=== PATIENT | male | born 1980 | race Caucasian/White ===

== ENCOUNTER → 2020-03-27 | Outpatient (CLI) | payer MEDICAID ==
[2020-03-27 14:47] LABS: Basophils # (A) 0.1 k/uL (0-0.2); Basophils % (A) 1 %; Eosinophils # (A) 0.4 k/uL (0-0.7); Eosinophils % (A) 3 %; HCT 43.9 % (39.0-53.0); HGB 14.6 gm/dL (13.0-17.5); Lymphocytes # (A) 3.8 k/uL (1.0-4.8); Lymphocytes % (A) 26 %; MCH 28.7 pg (25.0-35.0); MCHC 33.3 g/dL (31.0-37.0); MCV 86.2 fL (80.0-100.0); Mean Platelet Volume 7.6; Monocytes # (A) 0.7 k/uL (0-1.0); Monocytes % (A) 5 %; Neutrophils # (A) 9.3 k/uL (1.3-7.7); Neutrophils % (A) 63 %; Platelet Count 340 k/uL (150-450); WBC 14.6 k/uL (3.8-10.6)
[2020-03-28 00:26] LABS: African American GFR (CKD) 110.9 (60.0-200.0); Albumin 4.9 g/dL (3.80-4.90); Albumin/Globulin Ratio 1.88 (1.60-3.17); Anion Gap 11.8 mmol/L (4.00-12.00); Carbon Dioxide 22.2 mmol/L (21.6-31.8); Chol/HDL Ratio 4.14; Globulin 2.6 g/dL (1.6-3.3); LDL Cholesterol,Calculated 129.6 mg/dL (0.0-131.0); Non-African American GFR(CKD) 95.7 (60.0-200.0); Potassium 4.1 mmol/L (3.5-5.5); Total Bilirubin 0.4 mg/dL (0.2-1.2); Total Protein 7.5 g/dL (6.2-8.2); VLDL Calculation 24.4 mg/dL (5.00-40.00)
== END | disposition home or self-care (01) ==
LOC: LABWHC1 13:58
PROVIDERS: ATTEND Physician Assistant Medical
DX: Z00.00 Encounter for general adult medical examination without abnormal findings (principal); Z13.220 Encounter for screening for lipoid disorders; Z13.228 Encounter for screening for other metabolic disorders; Z13.29 Encounter for screening for other suspected endocrine disorder
CPT/HCPCS: 36415; 80053; 80061; 84443; 85025

== ENCOUNTER → 2020-04-22 | Outpatient (CLI) | payer MEDICAID ==
--- NOTE | 2020-04-22 15:01 | XR ---
EXAMINATION TYPE: XR knee limited RT DATE OF EXAM: 04/22/2020 CLINICAL HISTORY: Pain. TECHNIQUE: Frontal and lateral views of the right knee are obtained. COMPARISON: None. FINDINGS: There is no acute fracture/dislocation evident in right knee. Mild tricompartment joint sp reynaldo loss without significant spurring. Increased densities patellar bursa could reflect small to mode rate size joint effusion. IMPRESSION: As above.
--- NOTE | 2020-04-22 15:02 | XR ---
EXAMINATION TYPE: XR foot limited LT DATE OF EXAM: 04/22/2020 CLINICAL HISTORY: Left foot pain. Palpable cyst second digit medially. Patient. TECHNIQUE: Frontal and lateral images of the left foot are obtained. COMPARISON: None FINDINGS: There is no acute fracture/dislocation evident in the left foot. No suspicious bony destru ction. Pes planus deformity. The joint spaces in the left foot appear within normal limits. The ove rlying soft tissue appears unremarkable. IMPRESSION: As above.
== END | disposition home or self-care (01) ==
LOC: RADXRMAIN 14:09
PROVIDERS: ATTEND Physician Assistant Medical
DX: M25.561 Pain in right knee (principal); M79.672 Pain in left foot

== ENCOUNTER → 2021-04-07 | Outpatient (CLI) | payer MEDICAID ==
[2021-04-07 20:28] LABS: Basophils # (A) 0.17 X 10*3/uL (0.00-0.10); Basophils % (A) 1.2 %; Eosinophils # (A) 0.84 X 10*3/uL (0.04-0.35); Eosinophils % (A) 5.7 %; HCT 46.8 % (39.6-50.0); HGB 15.6 g/dL (13.0-17.0); Lymphocytes # (A) 4.25 X 10*3/uL (0.90-5.00); Lymphocytes % (A) 28.9 %; MCH 28.9 pg (27.0-32.0); MCHC 33.3 g/dL (32.0-37.0); MCV 86.8 fL (80.0-97.0); Mean Platelet Volume 10.2 fL (9.5-12.2); Monocytes # (A) 1.08 X 10*3/uL (0.20-1.00); Monocytes % (A) 7.3 %; Neutrophils # (A) 8.25 X 10*3/uL (1.80-7.70); Neutrophils % (A) 56.2 %; Platelet Count 329 X 10*3/uL (140-440); RBC 5.39 X 10*6/uL (4.40-5.60); RDW 13.4 % (11.5-14.5)
[2021-04-08 09:00] LABS: African American GFR (CKD) 100.4 (60.0-200.0); Albumin 4.5 g/dL (3.8-4.9); Albumin/Globulin Ratio 2.17 (1.60-3.17); Anion Gap 18.3 mmol/L (4.00-12.00); BUN/Creat Ratio 14.35 Ratio (12.00-20.00); Blood Urea Nitrogen 15.5 mg/dL (9.0-27.0); Calcium 9.3 mg/dL (8.7-10.3); Carbon Dioxide 18.6 mmol/L (21.6-31.8); Chol/HDL Ratio 5.47 Ratio; Globulin 2.1 g/dL (1.6-3.3); HDL Cholesterol 40.6 mg/dL (40.00-60.00); LDL Cholesterol,Calculated 136.6 mg/dL (0.0-131.0); Non-African American GFR(CKD) 86.6 (60.0-200.0); Total Bilirubin 0.2 mg/dL (0.30-1.20); Total Protein 6.6 g/dL (6.2-8.2); VLDL Calculation 44.8 mg/dL (5.00-40.00)
== END | disposition home or self-care (01) ==
LOC: LABWHC1 13:59
PROVIDERS: ATTEND Physician Assistant Medical
DX: Z01.89 Encounter for other specified special examinations (principal)
CPT/HCPCS: 36415; 80053; 80061; 84443; 85025

== ENCOUNTER → 2022-06-17 | Outpatient (CLI) | payer MEDICAID ==
[2022-06-17 15:04] LABS: Basophils # (A) 0.12 X 10*3/uL (0.00-0.10); Basophils % (A) 1.1 %; Eosinophils % (A) 4.4 %; HCT 45.8 % (39.6-50.0); HGB 15.6 g/dL (13.0-17.0); Immature Grans, Automated 0.5 %; Lymphocytes # (A) 3.53 X 10*3/uL (0.90-5.00); Lymphocytes % (A) 31.3 %; MCH 29.6 pg (27.0-32.0); MCHC 34.1 g/dL (32.0-37.0); MCV 86.9 fL (80.0-97.0); Mean Platelet Volume 10.3 fL (9.5-12.2); Monocytes # (A) 0.99 X 10*3/uL (0.20-1.00); Monocytes % (A) 8.8 %; NRBC Per 100 WBC 0 /100 WBCS (0.0-0.0); Neutrophils # (A) 6.07 X 10*3/uL (1.80-7.70); Neutrophils % (A) 53.9 %; Platelet Count 352 X 10*3/uL (140-440); RBC 5.27 X 10*6/uL (4.40-5.60); RDW 13.5 % (11.5-14.5); WBC 11.27 X 10*3/uL (4.50-10.00)
[2022-06-17 15:38] LABS: ALT 27 U/L (10-49); AST 22 U/L (14-35); African American GFR (CKD) 118.5 (60.0-200.0); Albumin 4.6 g/dL (3.8-4.9); Albumin/Globulin Ratio 2.09 (1.60-3.17); Alkaline Phosphatase 78 U/L (41-126); BUN/Creat Ratio 14.21 Ratio (12.00-20.00); Blood Urea Nitrogen 13.3 mg/dL (9.0-27.0); Calcium 9.7 mg/dL (8.7-10.3); Carbon Dioxide 24.2 mmol/L (20.0-27.5); Chloride 104 mmol/L (96-109); Chol/HDL Ratio 5.39 Ratio; Globulin 2.2 g/dL (1.6-3.3); Glucose 102 mg/dL (70-110); LDL Cholesterol,Calculated 142.7 mg/dL (0.0-131.0); Non-African American GFR(CKD) 102.3 (60.0-200.0); Potassium 4.5 mmol/L (3.5-5.5); Sodium 139 mmol/L (135-145); Total Protein 6.8 g/dL (6.2-8.2)
== END | disposition home or self-care (01) ==
LOC: LABWHC1 08:07
PROVIDERS: ATTEND Nurse Practitioner Family
DX: Z00.01 Encounter for general adult medical examination with abnormal findings (principal); Z13.228 Encounter for screening for other metabolic disorders; U07.1 COVID-19
CPT/HCPCS: 36415; 80053; 80061; 84443; 85025; 86769

== ENCOUNTER 2022-12-02 13:15 | Observation (INO) | payer MEDICAID ==
--- NOTE | 2022-12-02 14:44 | ED ---
Abdominal Pain HPI - General Chief Complaint: Abdominal Pain Stated Complaint: Lower Abd Pain Time Seen by Provider: 12/02/22 14:28 Source: patient Mode of arrival: ambulatory Limitations: no limitations - History of Present Illness Initial Comments: 42-year-old male with no reported past medical history who presents to the emergency department reporting right lower quadrant abdominal pain. States that he came home from vacation on Tuesday and felt slight pain in his right lower quadrant. The pain has progressively gotten worse. States it is worse with movement and palpation. Better with rest. He does have an inguinal hernia on the right however this is easily reproducible and in a separate location than where his new pain has developed. He denies any nausea or vomiting. No fevers. No diarrhea, constipation, black or bloody stools. No testicular pain or swelling. No concern for sexually transmitted infections. No urinary complaint s to include dysuria, hematuria or difficulty voiding. He has not had any abdominal surgeries. No other alleviating, precipitating or modifying factors - Related Data Home Medications Medication Instructions Recorded Confirmed No Known Home Medications 12/02/22 12/02/22 Allergies Allergy/AdvReac Type Severity Reaction Status Date / Time No Known Allergies Allergy Verified 12/02/22 14:45 Review of Systems ROS Statement: Those systems with pertinent positive or pertinent negative responses have been documented in the HPI. ROS Other: All systems not noted in ROS Statement are negative. Past Medical History Past Medical History: No Reported History History of Any Multi-Drug Resistant Organisms: None Reported Past Surgical History: No Surgical Hx Reported Past Psychological History: No Psychological Hx Reported Smoking Status: Current every day smoker Past Alcohol Use History: Occasional Past Drug Use History: None Reported General Exam Limitations: no limitations General appearance: alert, in no apparent distress Head exam: Present: atraumatic, normocephalic, normal inspection Eye exam: Present: normal appearance, PERRL, EOMI. Absent: scleral icterus, conjunctival injection, periorbital swelling ENT exam: Present: normal exam, mucous membranes moist Neck exam: Present: normal inspection. Absent: tenderness, meningismus, lymphadenopathy Respiratory exam: Present: normal lung sounds bilaterally. Absent: respiratory distress, wheezes, rales, rhonchi, stridor Cardiovascular Exam: Present: regular rate, normal rhythm, normal heart sounds. Absent: systolic murmur, diastolic murmur, rubs, gallop, clicks GI/Abdominal exam: Present: soft, tenderness (Right lower quadrant), normal bowel sounds. Absent: distended, guarding, rebound, rigid Extremities exam: Present: normal inspection, full ROM, normal capillary refill. Absent: tenderness, pedal edema, joint swelling, calf tenderness Back exam: Present: normal inspection Neurological exam: Present: alert, oriented X3, CN II-XII intact Psychiatric exam: Present: normal affect, normal mood Skin exam: Present: warm, dry, intact, normal color. Absent: rash Course Vital Signs 12/02/22 12/02/22 12/02/22 14:17 17:47 19:25 Temperature 98.3 F 97.8 F Pulse Rate 82 73 75 Respiratory 16 18 17 Rate Blood Pressure 132/75 145/92 124/66 O2 Sat by Pulse 97 97 96 Oximetry 12/02/22 21:23 Temperature Pulse Rate 74 Respiratory 15 Rate Blood Pressure 120/53 O2 Sat by Pulse Oximetry Medical Decision Making - Medical Decision Making Was pt. sent in by a medical professional or institution (, PA, [employer], urgent care, hospital, or skilled nursing...) When possible be specific @ -No Did you speak to anyone other than the patient for history (EMS, parent, family, police, friend...)? What history was obtained from this source @ -No Did you review nursing and triage notes (agree or disagree)? Why? @ -I reviewed and agree with nursing and triage notes Were old charts reviewed (outside hosp., previous admission, EMS record, old EKG, old radiological studies, urgent care reports/EKG's, skilled nursing records)? Report findings @ -No old charts were reviewed Differential Diagnosis (chest pain, altered mental status, abdominal pain women, abdominal pain men, vaginal bleeding, weakness, fever, dyspnea, syncope, headach e, dizziness, GI bleed, back pain, seizure, CVA, palpatations, mental health, musculoskeletal)? @ -Differential Abdominal Pain Men: Appendicitis, cholecystitis, diverticulosis, ischemic bowel, pancreatitis, hepatitis, UTI, gastroenteritis, AAA, incarcerated hernia, bowel obstruction, constipation, inflammatory bowel, hepatitis, peptic ulcer disease, splenic infarction, perforated viscus, testicular torsion, this is not meant to be an all-inclusive list EKG interpreted by me (3pts min.). @ -Not done X-rays interpreted by me (1pt min.). @ -None done CT interpreted by me (1pt min.). @ -yes and demonstrates omental infarct U/S interpreted by me (1pt. min.). @ -None done What testing was considered but not performed or refused? (CT, X-rays, U/S, labs)? Why? @ -None What meds were considered but not given or refused? Why? @ -None Did you discuss the management of the patient with other professionals (professionals i.e. DrDayana, PA, [employer], lab, RT, psych nurse, bilingual social worker, recycling collections driver, teacher, bank operations officer, telehealth case manager)? Give summary @ -I spoke with Dr. Castro in regards to the patient's symptoms Was smoking cessation discussed for >3mins.? @ -No Was critical care preformed (if so, how long)? @ -No Were there social determinants of health that impacted care today? How? (Homelessness, low income, unemployed, alcoholism, drug addiction, transportation, low edu. Level, literacy, decrease access to med. care, fci, rehab)? @ -No Was there de-escalation of care discussed even if they declined (Discuss DNR or withdrawal of care, Hospice)? DNR status @ -No What co-morbidities impacted this encounter? (DM, HTN, Smoking, COPD, CAD, Cance r, CVA, ARF, Chemo, Hep., AIDS, mental health diagnosis, sleep apnea, morbid obesity)? @ -None Was patient admitted / discharged? Hospital course, mention meds given and route, prescriptions, significant lab abnormalities, going to OR and other pertinent info. @ -Upon arrival patient was placed into room 25. A thorough history and physical exam was performed. Patient does have significant tenderness the right lower quadrant. IV is established laboratory studies were conducted. Patient does have a leukocytosis. He reports that he has been told that he had elevated white blood cell counts in the past however has never been fully evaluated for this. Unsure of high his counts typically run. CT is performed which demonstrates omental infarct. I spoke with Dr. Castro. Patient will be covered with antibiotics and admitted overnight for observation. Repeat labs ordered for the morning. Patient was agreeable to this plan. Awaiting a bed on the floor in stable condition Undiagnosed new problem with uncertain prognosis? @ -Yes Drug Therapy requiring intensive monitoring for toxicity (Heparin, Nitro, Insulin, Cardizem)? @ -No Were any procedures done? @ -No Diagnosis/symptom? @ -Acute right lower quadrant pain, acute omental infarct, acute leukocytosis Acute, or Chronic, or Acute on Chronic? @ -Acute Uncomplicated (without systemic symptoms) or Complicated (systemic symptoms)? @ -Complicated Side effects of treatment? @ -No Exacerbation, Progression, or Severe Exacerbation? @ -No Poses a threat to life or bodily function? How? (Chest pain, USA, VT, pneumonia, PE, COPD, DKA, ARF, appy, cholecystitis, CVA, Diverticulitis, Homicidal, Suicidal, threat to staff... and all critical care pts) @ -No - Lab Data Result diagrams: 12/02/22 15:02 12/02/22 15:02 Lab Results 12/02/22 12/02/22 12/02/22 Range/Units 15:02 15:02 15:02 WBC 19.1 H (3.8-10.6) k/uL RBC 5.58 (4.30-5.90) m/uL Hgb 16.6 (13.0-17.5) gm/dL Hct 48.5 (39.0-53.0) % MCV 87.0 (80.0-100.0) fL MCH 29.8 (25.0-35.0) pg MCHC 34.3 (31.0-37.0) g/dL RDW 13.7 (11.5-15.5) % Plt Count 284 (150-450) k/uL MPV 7.8 Neutrophils % 72 % Lymphocytes % 19 % Monocytes % 5 % Eosinophils % 2 % Basophils % 0 % Neutrophils # 13.8 H (1.3-7.7) k/uL Lymphocytes # 3.7 (1.0-4.8) k/uL Monocytes # 1.0 (0-1.0) k/uL Eosinophils # 0.3 (0-0.7) k/uL Basophils # 0.1 (0-0.2) k/uL Sodium 138 (137-145) mmol/L Potassium 4.0 (3.5-5.1) mmol/L Chloride 100 (98-107) mmol/L Carbon Dioxide 26 (22-30) mmol/L Anion Gap 12 mmol/L BUN 18 (9-20) mg/dL Creatinine 0.81 (0.66-1.25) mg/dL Est GFR (CKD-EPI)AfAm >90 (>60 ml/min/1.73 sqM) Est GFR (CKD-EPI)NonAf >90 (>60 ml/min/1.73 sqM) Glucose 95 (74-99) mg/dL Plasma Lactic Acid Nikita (0.7-2.0) mmol/L Calcium 9.8 (8.4-10.2) mg/dL Total Bilirubin 0.7 (0.2-1.3) mg/dL AST 36 (17-59) U/L ALT 37 (4-49) U/L Alkaline Phosphatase 86 (38-126) U/L Total Protein 8.1 (6.3-8.2) g/dL Albumin 4.8 (3.5-5.0) g/dL Lipase 31 (23-300) U/L Urine Color Yellow Urine Appearance Clear (Clear) Urine pH 6.0 (5.0-8.0) Ur Specific [place] 1.015 (1.001-1.035) Urine Protein Negative (Negative) Urine Glucose (UA) Negative (Negative) Urine Ketones Negative (Negative) Urine Blood Negative (Negative) Urine Nitrite Negative (Negative) Urine Bilirubin Negative (Negative) Urine Urobilinogen <2.0 (<2.0) mg/dL Ur Leukocyte Esterase Negative (Negative) 12/02/22 Range/Units 15:02 WBC (3.8-10.6) k/uL RBC (4.30-5.90) m/uL Hgb (13.0-17.5) gm/dL Hct (39.0-53.0) % MCV (80.0-100.0) fL MCH (25.0-35.0) pg MCHC (31.0-37.0) g/dL RDW (11.5-15.5) % Plt Count (150-450) k/uL MPV Neutrophils % % Lymphocytes % % Monocytes % % Eosinophils % % Basophils % % Neutrophils # (1.3-7.7) k/uL Lymphocytes # (1.0-4.8) k/uL Monocytes # (0-1.0) k/uL Eosinophils # (0-0.7) k/uL Basophils # (0-0.2) k/uL Sodium (137-145) mmol/L Potassium (3.5-5.1) mmol/L Chloride (98-107) mmol/L Carbon Dioxide (22-30) mmol/L Anion Gap mmol/L BUN (9-20) mg/dL Creatinine (0.66-1.25) mg/dL Est GFR (CKD-EPI)AfAm (>60 ml/min/1.73 sqM) Est GFR (CKD-EPI)NonAf (>60 ml/min/1.73 sqM) Glucose (74-99) mg/dL Plasma Lactic Acid Nikita 0.9 (0.7-2.0) mmol/L Calcium (8.4-10.2) mg/dL Total Bilirubin (0.2-1.3) mg/dL AST (17-59) U/L ALT (4-49) U/L Alkaline Phosphatase (38-126) U/L Total Protein (6.3-8.2) g/dL Albumin (3.5-5.0) g/dL Lipase (23-300) U/L Urine Color Urine Appearance (Clear) Urine pH (5.0-8.0) Ur Specific [place] (1.001-1.035) Urine Protein (Negative) Urine Glucose (UA) (Negative) Urine Ketones (Negative) Urine Blood (Negative) Urine Nitrite (Negative) Urine Bilirubin (Negative) Urine Urobilinogen (<2.0) mg/dL Ur Leukocyte Esterase (Negative) Disposition Clinical Impression: Omental infarction, Leukocytosis Disposition: ADMITTED IP TO THIS [facility] Condition: Stable Is patient prescribed a controlled substance at d/c from ED?: No Time of Disposition: 16:58 Decision to Admit Reason: Admit from EC Decision Date: 12/02/22 Decision Time: 16:58
[2022-12-02] MEDS ORDERED: SODIUM CHLORIDE 0.9% 1,000 ML IV ONE (15:08)
[2022-12-02 15:27] LABS: Appearance,Urine Clear (Clear); Bilirubin,Urine Negative (Negative); Blood,Urine Negative (Negative); Color,Urine Yellow; Glucose,Urine (UA) Negative (Negative); Ketones,Urine Negative (Negative); Leukocyte Esterase,Urine Negative (Negative); Nitrite,Urine Negative (Negative); Protein,Urine Negative (Negative); Specific Gravity,Urine 1.015 (1.001-1.035); Urobilinogen,Urine <2.0 mg/dL (<2.0)
[2022-12-02 15:30] LABS: Basophils # (A) 0.1 k/uL (0-0.2); Basophils % (A) 0 %; Eosinophils # (A) 0.3 k/uL (0-0.7); Eosinophils % (A) 2 %; HCT 48.5 % (39.0-53.0); HGB 16.6 gm/dL (13.0-17.5); Lymphocytes # (A) 3.7 k/uL (1.0-4.8); Lymphocytes % (A) 19 %; MCH 29.8 pg (25.0-35.0); MCHC 34.3 g/dL (31.0-37.0); Mean Platelet Volume 7.8; Monocytes % (A) 5 %; Neutrophils # (A) 13.8 k/uL (1.3-7.7); Neutrophils % (A) 72 %; Platelet Count 284 k/uL (150-450); RBC 5.58 m/uL (4.30-5.90); RDW 13.7 % (11.5-15.5); WBC 19.1 k/uL (3.8-10.6)
[2022-12-02 15:34] LABS: ALT 37 U/L (4-49); AST 36 U/L (17-59); African American GFR (CKD) >90 (>60 ml/min/1.73 sqM); Albumin 4.8 g/dL (3.5-5.0); Alkaline Phosphatase 86 U/L (38-126); Anion Gap 12 mmol/L; Blood Urea Nitrogen 18 mg/dL (9-20); Calcium 9.8 mg/dL (8.4-10.2); Carbon Dioxide 26 mmol/L (22-30); Chloride 100 mmol/L (98-107); Glucose 95 mg/dL (74-99); Lipase 31 U/L (23-300); Non-African American GFR(CKD) >90 (>60 ml/min/1.73 sqM); Sodium 138 mmol/L (137-145); Total Bilirubin 0.7 mg/dL (0.2-1.3); Total Protein 8.1 g/dL (6.3-8.2)
--- NOTE | 2022-12-02 16:17 | CT ---
EXAMINATION TYPE: CT abdomen pelvis w con CT DLP: 1167.3 mGycm, Automated exposure control for dose reduction was used. DATE OF EXAM: 12/02/2022 4:08 PM COMPARISON: None CLINICAL INDICATION:Male, 42 years old with history of rlq pain; RLQ pain TECHNIQUE: Standard CT of the abdomen and pelvis following the administration of 100 cc of Isovue 3 70 IV contrast material. Coronal and sagittal reformats were performed. FINDINGS: LOWER CHEST: Posterior dependent subsegmental atelectasis is noted. ABDOMEN LIVER: Unremarkable GALLBLADDER AND BILE DUCTS: Unremarkable. PANCREAS: Unremarkable. SPLEEN: Unremarkable. ADRENAL GLANDS: Unremarkable. KIDNEYS AND URETERS: No evidence of hydronephrosis or renal calculus. The kidneys enhance symmetrical ly without suspicious focal lesion. PELVIS BLADDER: Unremarkable REPRODUCTIVE: Unremarkable. ABDOMEN & PELVIS STOMACH AND BOWEL: The appendix is within normal limits.Circumferential wall thickening of the mid sm all bowel in the left midabdomen. No evidence of bowel obstruction. PERITONEUM: No evidence of pneumoperitoneum or free fluid. Fat stranding with circular structure in t he right lower quadrant most consistent an omental infarct (series 21, image 53). VASCULATURE: No evidence of aortic aneurysm. MUSCULOSKELETAL: No acute osseous abnormalities LYMPH NODES: No gross evidence for lymphadenopathy. SOFT TISSUE/ABDOMINAL WALL: Fat filled right inguinal hernia. Small fat filled umbilical hernia. Tiny fat filled supraumbilical hernia. IMPRESSION: 1. Findings consistent with an acute right lower quadrant omental infarction which is a self-limitin g condition. 2. Findings suggestive of an enteritis involving the mid small bowel.
[2022-12-02] MEDS ORDERED: ACETAMINOPHEN TAB 325 MG TAB PO PRN (16:59)
[2022-12-02] MEDS ORDERED: NALOXONE 0.4 MG/ML 1 ML VIAL IV PRN (16:59)
[2022-12-02] MEDS: IBUPROFEN 400 MG TAB PO PRN (17:30)
[2022-12-02] MEDS: PIPERACILLIN-TAZOBACTAM 3.375 GM in SODIUM CHLORIDE 0.9% 100 ML IVPB SCH (17:31)
[2022-12-02] MEDS: SODIUM CHLORIDE 0.9% 1,000 ML IV SCH (17:31)
[2022-12-02 18:24] VITALS: TEMP 97.8
[2022-12-03] MEDS: PIPERACILLIN-TAZOBACTAM 3.375 GM in SODIUM CHLORIDE 0.9% 100 ML IVPB SCH ×2 (01:40→08:00)
[2022-12-03] MEDS: SODIUM CHLORIDE 0.9% 1,000 ML IV SCH ×2 (01:40→12:18)
[2022-12-03] MEDS: IBUPROFEN 400 MG TAB PO PRN (06:45)
[2022-12-03 07:18] LABS: Basophils # (A) 0.1 k/uL (0-0.2); Basophils % (A) 1 %; Eosinophils # (A) 0.5 k/uL (0-0.7); Eosinophils % (A) 3 %; HCT 45.8 % (39.0-53.0); HGB 15.2 gm/dL (13.0-17.5); Lymphocytes # (A) 3.2 k/uL (1.0-4.8); Lymphocytes % (A) 21 %; MCH 29.5 pg (25.0-35.0); MCHC 33.2 g/dL (31.0-37.0); MCV 88.8 fL (80.0-100.0); Mean Platelet Volume 8.1; Monocytes % (A) 6 %; Neutrophils # (A) 10.3 k/uL (1.3-7.7); Neutrophils % (A) 68 %; Platelet Count 282 k/uL (150-450); RBC 5.16 m/uL (4.30-5.90); RDW 13.8 % (11.5-15.5); WBC 15.3 k/uL (3.8-10.6)
[2022-12-03 07:41] LABS: African American GFR (CKD) >90 (>60 ml/min/1.73 sqM); Anion Gap 7 mmol/L; Blood Urea Nitrogen 15 mg/dL (9-20); Calcium 8.5 mg/dL (8.4-10.2); Carbon Dioxide 24 mmol/L (22-30); Chloride 108 mmol/L (98-107); Glucose 97 mg/dL (74-99); Non-African American GFR(CKD) >90 (>60 ml/min/1.73 sqM); Potassium 4.4 mmol/L (3.5-5.1); Sodium 139 mmol/L (137-145)
--- NOTE | 2022-12-03 10:57 | P.GSHP ---
History of Present Illness H&P Date: 12/03/22 Chief Complaint: Abdominal pain 42-year-old male began having abdominal pain and right mid abdomen on Tuesday. He was returning on a flight from [place]. Over the last 3 days the pain has gradually increased in severity. Yesterday the pain was up to 8 out of 10 and he came to the hospital. Patient had mild anorexia otherwise no associated symptoms. There was no nausea or vomiting, no fevers, no bowel habit changes. Patient says movement seems to aggravate the pain. Patient says the pain is in the right midabdomen. No history of similar events. Patient was found have an elevated white blood cell count of 19 yesterday. Repeat today is 15. CAT scan performed yesterday evening showed inflammatory changes involving the fat anterior to the ascending colon. This was described as possible omental infarct. The bowel wall itself appeared normal. The appendix is deeper in the pelvis and away from the site of inflammation. No history of colonoscopy. - Review of Systems Comment: The patient denies any acute changes in vision or hearing, no dysphagia or odynophagia, no chest pain or shortness of breath, no dysuria or hematuria, no headache, no runny nose, no rectal bleeding or melena, no unexplained weight loss Past Medical History Past Medical History: No Reported History History of Any Multi-Drug Resistant Organisms: None Reported Past Surgical History: No Surgical Hx Reported Past Psychological History: No Psychological Hx Reported Smoking Status: Current every day smoker Past Alcohol Use History: Occasional Past Drug Use History: None Reported Medications and Allergies Home Medications Medication Instructions Recorded Confirmed Type No Known Home Medications 12/02/22 12/02/22 History Allergies Allergy/AdvReac Type Severity Reaction Status Date / Time No Known Allergies Allergy Verified 12/02/22 14:45 Surgical - Exam Vital Signs Temp Pulse Resp BP Pulse Ox 98.3 F 82 16 132/75 97 12/02/22 14:17 12/02/22 14:17 12/02/22 14:17 12/02/22 14:17 12/02/22 14:17 Physical exam: General: Well-developed, well-nourished HEENT: Normocephalic, sclerae nonicteric Abdomen: Right mid abdominal tenderness, nondistended Extremities: No edema Neuro: Alert and oriented Results - Labs 12/03/22 06:18 12/03/22 06:18 Abnormal Lab Results - Last 24 Hours (Table) 12/02/22 12/03/22 12/03/22 Range/Units 15:02 06:18 06:18 WBC 19.1 H 15.3 H (3.8-10.6) k/uL Neutrophils # 13.8 H 10.3 H (1.3-7.7) k/uL Chloride 108 H (98-107) mmol/L Diabetes panel 12/02/22 12/03/22 Range/Units 15:02 06:18 Sodium 138 139 (137-145) mmol/L Potassium 4.0 4.4 (3.5-5.1) mmol/L Chloride 100 108 H (98-107) mmol/L Carbon Dioxide 26 24 (22-30) mmol/L BUN 18 15 (9-20) mg/dL Creatinine 0.81 0.82 (0.66-1.25) mg/dL Glucose 95 97 (74-99) mg/dL Calcium 9.8 8.5 (8.4-10.2) mg/dL AST 36 (17-59) U/L ALT 37 (4-49) U/L Alkaline Phosphatase 86 (38-126) U/L Total Protein 8.1 (6.3-8.2) g/dL Albumin 4.8 (3.5-5.0) g/dL Calcium panel 12/02/22 12/03/22 Range/Units 15:02 06:18 Calcium 9.8 8.5 (8.4-10.2) mg/dL Albumin 4.8 (3.5-5.0) g/dL Pituitary panel 12/02/22 12/03/22 Range/Units 15:02 06:18 Sodium 138 139 (137-145) mmol/L Potassium 4.0 4.4 (3.5-5.1) mmol/L Chloride 100 108 H (98-107) mmol/L Carbon Dioxide 26 24 (22-30) mmol/L BUN 18 15 (9-20) mg/dL Creatinine 0.81 0.82 (0.66-1.25) mg/dL Glucose 95 97 (74-99) mg/dL Calcium 9.8 8.5 (8.4-10.2) mg/dL Adrenal panel 06/08/23 06/09/23 Range/Units 15:02 06:18 Sodium 138 139 (137-145) mmol/L Potassium 4.0 4.4 (3.5-5.1) mmol/L Chloride 100 108 H (98-107) mmol/L Carbon Dioxide 26 24 (22-30) mmol/L BUN 18 15 (9-20) mg/dL Creatinine 0.81 0.82 (0.66-1.25) mg/dL Glucose 95 97 (74-99) mg/dL Calcium 9.8 8.5 (8.4-10.2) mg/dL Total Bilirubin 0.7 (0.2-1.3) mg/dL AST 36 (17-59) U/L ALT 37 (4-49) U/L Alkaline Phosphatase 86 (38-126) U/L Total Protein 8.1 (6.3-8.2) g/dL Albumin 4.8 (3.5-5.0) g/dL Assessment and Plan (1) Omental infarction Narrative/Plan: 42-year-old male with inflamed pericolonic fat along the ascending colon. Most likely etiology is related to ischemic changes from torsion of the fatty tissue in that region. Other potential etiologies would include colonic pathology such as colitis or neoplasm. This is thought to be far less likely. The patient does feel better today. He would like to try to go home today. Will advance diet as tolerated at this time. If pain well-controlled would be comfortable with discharge on oral antibiotics empirically in the event that this is related to colitis. Recommend outpatient follow-up to discuss possible interval colonoscopy. Current Visit: Yes Status: Acute Code(s): K55.069 - ACUTE INFARCTION OF INTESTINE, PART AND EXTENT UNSPECIFIED SNOMED Code(s): 36996774
[2022-12-03 12:49] VITALS: BP 123/87; PULSE 72; RESP 18
== END 2022-12-03 13:57 | disposition home or self-care (01) ==
LOC: EC 13:15 → SUPCPDRO 13:15 → 6NMEDSUR 16:59 → 5NMEDONC 12-03 10:41
PROVIDERS: ADMIT Surgery; ATTEND Surgery
DX: K55.069 Acute infarction of intestine, part and extent unspecified (principal); K40.90 Unilateral inguinal hernia, without obstruction or gangrene, not specified as recurrent; D72.829 Elevated white blood cell count, unspecified; R63.0 Anorexia; F17.200 Nicotine dependence, unspecified, uncomplicated
CPT/HCPCS: 96361; 96365; 96366 ×2; 99285; 36415; 80053; 80048; 83605; 83690; 85025 ×2; 81003; 87040; 74177; G0378 ×3; J2543 ×2; Q9967

== ENCOUNTER → 2023-07-19 | Outpatient (CLI) | payer MEDICAID ==
[2023-07-19 13:31] LABS: Basophils # (A) 0.12 X 10*3/uL (0.00-0.10); Basophils % (A) 1.1 %; Eosinophils # (A) 0.47 X 10*3/uL (0.04-0.35); Eosinophils % (A) 4.2 %; HCT 48.1 % (39.6-50.0); HGB 16.3 g/dL (13.0-17.0); Lymphocytes # (A) 3.65 X 10*3/uL (0.90-5.00); Lymphocytes % (A) 32.6 %; MCH 29.9 pg (27.0-32.0); MCHC 33.9 g/dL (32.0-37.0); MCV 88.3 FL (80.0-97.0); Mean Platelet Volume 10.2 FL (9.5-12.2); Monocytes # (A) 1.02 X 10*3/uL (0.20-1.00); Monocytes % (A) 9.1 %; NRBC Per 100 WBC 0 X 10*3/uL (0.00-0.01); Neutrophils % (A) 52.6 %; Platelet Count 323 X 10*3/uL (140-440); RBC 5.45 X 10*6/uL (4.40-5.60); RDW 13.6 % (11.5-14.5); WBC 11.21 X 10*3/uL (4.50-10.00)
[2023-07-19 14:06] LABS: ALT 27 U/L (10-49); AST 20 U/L (14-35); Albumin 4.6 g/dL (3.8-4.9); Albumin/Globulin Ratio 1.77 Ratio (1.60-3.17); Alkaline Phosphatase 82 U/L (41-126); Blood Urea Nitrogen 14.7 mg/dL (9.0-27.0); Calcium 9.7 mg/dL (8.7-10.3); Carbon Dioxide 25.8 mmol/L (21.6-31.8); Chloride 103 mmol/L (96-109); Chol/HDL Ratio 5.72 Ratio; Globulin 2.6 g/dL (1.6-3.3); Glucose 115 mg/dL (70-110); LDL Cholesterol,Calculated 131.9 mg/dL (0.0-131.0); Potassium 4.5 mmol/L (3.5-5.5); Sodium 140 mmol/L (135-145); Total Bilirubin 0.4 mg/dL (0.3-1.2); Total Protein 7.2 g/dL (6.2-8.2)
== END | disposition home or self-care (01) ==
LOC: LABWHC1 07:46
PROVIDERS: ATTEND Nurse Practitioner Family
DX: Z13.21 Encounter for screening for nutritional disorder (principal); Z13.220 Encounter for screening for lipoid disorders; Z13.228 Encounter for screening for other metabolic disorders; Z13.29 Encounter for screening for other suspected endocrine disorder
CPT/HCPCS: 36415; 80053; 80061; 82306; 84443; 85025